=== PATIENT | male | born 1990 | race African-American/Black ===

== ENCOUNTER 2017-07-15 03:26 | Emergency (ER) | payer OTHER ==
[~2017-07-15] VITALS: Ht 180.3 cm; Wt 102.1 kg
[2017-07-15] MEDS ORDERED: IBUPROFEN 200200 M1 PO (03:37)
[2017-07-15] MEDS ORDERED: APAP/CODEINE ELI5 M1 PO (04:12)
== END 2017-07-15 05:00 | disposition home or self-care (01) ==
LOC: ER 03:26
DX: S46.911A Strain of unspecified muscle, fascia and tendon at shoulder and upper arm level, right arm, initial encounter (principal); X58.XXXA Exposure to other specified factors, initial encounter; Y93.89 Activity, other specified; Y92.89 Other specified places as the place of occurrence of the external cause; Y99.8 Other external cause status